=== PATIENT | female | born 1960 | race African-American/Black ===

== ENCOUNTER 2016-11-15 13:29 | Emergency (ER) | payer OTHER ==
[~2016-11-15] VITALS: Ht 167.6 cm; Wt 81.0 kg
[~2016-11-15 13:29] MED LIST: AMLO-511 PO; ASPI-825 PO; FURO20TA4 PO; ISOS60TA4 PO; METO50 PO; SPIR25 PO
[2016-11-15] MEDS ORDERED: HYDROCODONE/ACETAMINOPHEN 5-325 MG TABLET PO ONE (16:30)
[2016-11-15] MEDS ORDERED: SODIUM CHLORIDE 0.9% 1,000 ML IV ONE (16:30)
[2016-11-15] MEDS ORDERED: ACETAMINOPHEN 500 MG TABLET PO ONE (16:30)
[2016-11-15] MEDS ORDERED: LIDOCAINE HCL BUFFERED 1% W/EPI 1:100,000 20 ML VIAL INJ ONE (16:30)
[2016-11-15 17:05] LABS: BASOPHILS % (AUTO) 0.2 % (0.0-2.0); EOSINOPHILS % (AUTO) 0.1 % (1.0-6.0); HEMATOCRIT 41.1 % (36-46); HEMOGLOBIN 13.1 g/dL (12.0-16.0); LYMPHOCYTES # (AUTO) 1.3 K/uL (1.0-4.8); LYMPHOCYTES % (AUTO) 19.7 % (22.0-44.0); MEAN CORPUSCULAR HEMOGLOBIN 26.6 pg (26.0-34.0); MEAN CORPUSCULAR HGB CONC 31.8 G/dL (31.0-37.0); MEAN CORPUSCULAR VOLUME 84 fL (80-100); MONOCYTES # (AUTO) 0.7 K/uL (0.1-1.0); MONOCYTES % (AUTO) 10.6 % (2.0-9.0); NEUTROPHILS # (AUTO) 4.7 K/uL (1.8-7.7); NEUTROPHILS % (AUTO) 69.4 % (40.0-70.0); PLATELET COUNT (AUTO) 163 K/uL (150-450); RED BLOOD CELL COUNT(AUTO) 4.91 MIL/uL (4.00-5.20); RED CELL DISTRIBUTION WIDTH 15.2 % (11.5-14.5); WHITE BLOOD COUNT (AUTO) 6.8 K/uL (4.5-11.0)
[2016-11-15 17:15] LABS: CALCIUM, TOTAL 9.3 mg/dL (8.8-10.5); CREATININE 1.81 mg/dL (0.60-1.30); POTASSIUM 3.9 mmol/L (3.5-5.1)
[2016-11-15 17:25] LABS: ALBUMIN 3.2 g/dL (3.4-5.0); BILIRUBIN,TOTAL 0.5 mg/dL (0.1-1.0); TOTAL PROTEIN, SERUM 8.2 g/dL (6.4-8.2)
[2016-11-15 18:31] LABS: APPEARANCE,UNSPUN,BODY FLUID CLOUDY (CLEAR)
[2016-11-15 18:32] LABS: COLOR,BODY FLUID YELLOW (LT YELLOW)
[2016-11-15 18:40] LABS: ERYTHROCYTE SEDIMENTATION RATE 50 MM/HR (0-20)
[2016-11-15 18:46] LABS: OTHER CELLS,BODY FLUID 0
[2016-11-15 19:06] LABS: CRYSTALS, SYNOVIAL FLUID Mono Urates - Rare (None Seen)
[2016-11-15 22:21] VITALS: BP 143/81
== END 2016-11-15 23:16 | disposition home or self-care (01) ==
LOC: EMS 13:31
DX: M25.462 Effusion, left knee (principal); J45.909 Unspecified asthma, uncomplicated; I25.10 Atherosclerotic heart disease of native coronary artery without angina pectoris; E78.00 Pure hypercholesterolemia, unspecified; I11.0 Hypertensive heart disease with heart failure; I50.9 Heart failure, unspecified; I25.2 Old myocardial infarction; F17.210 Nicotine dependence, cigarettes, uncomplicated; K21.9 Gastro-esophageal reflux disease without esophagitis; Z79.82 Long term (current) use of aspirin; Z91.040 Latex allergy status; Z88.8 Allergy status to other drugs, medicaments and biological substances; Z91.018 Allergy to other foods
CPT/HCPCS: 20610; 36415; 73562; 80053; 85025; 85651; 87040; 87070; 87205; 89051; 89060; 96360; 96361; 99285; J3490; J7030

== ENCOUNTER 2016-11-29 17:55 | Inpatient (IN) | payer OTHER ==
[~2016-11-29] VITALS: Ht 167.6 cm; Wt 71.0 kg
[2016-11-29] MEDS ORDERED: ACETAMINOPHEN 325 MG TABLET PO ONE (22:00)
[2016-11-29] MEDS ORDERED: HYDROCODONE/ACETAMINOPHEN 5-325 MG TABLET PO ONE (22:00)
[2016-11-29] MEDS ORDERED: IBUPROFEN 800 MG TABLET PO ONE (22:00)
[2016-11-29] MEDS ORDERED: POVIDONE-IODINE 10% 120 ML SOLUTION TP ONE (22:30)
[2016-11-29 22:40] LABS: BASOPHILS % (AUTO) 0.2 % (0.0-2.0); EOSINOPHILS % (AUTO) 0.1 % (1.0-6.0); HEMATOCRIT 39.3 % (36-46); HEMOGLOBIN 12.4 g/dL (12.0-16.0); LYMPHOCYTES # (AUTO) 1.4 K/uL (1.0-4.8); LYMPHOCYTES % (AUTO) 14.3 % (22.0-44.0); MEAN CORPUSCULAR HEMOGLOBIN 26.5 pg (26.0-34.0); MEAN CORPUSCULAR HGB CONC 31.6 G/dL (31.0-37.0); MEAN CORPUSCULAR VOLUME 84 fL (80-100); MONOCYTES # (AUTO) 0.6 K/uL (0.1-1.0); MONOCYTES % (AUTO) 5.6 % (2.0-9.0); NEUTROPHILS # (AUTO) 7.9 K/uL (1.8-7.7); NEUTROPHILS % (AUTO) 79.8 % (40.0-70.0); PLATELET COUNT (AUTO) 188 K/uL (150-450); RED BLOOD CELL COUNT(AUTO) 4.69 MIL/uL (4.00-5.20); RED CELL DISTRIBUTION WIDTH 14.5 % (11.5-14.5); WHITE BLOOD COUNT (AUTO) 9.9 K/uL (4.5-11.0)
[2016-11-29 22:48] LABS: CALCIUM, TOTAL 9.6 mg/dL (8.8-10.5); CREATININE 2.15 mg/dL (0.60-1.30); POTASSIUM 3.9 mmol/L (3.5-5.1)
[2016-11-29 22:54] LABS: ALBUMIN 3.2 g/dL (3.4-5.0); BILIRUBIN,TOTAL 0.5 mg/dL (0.1-1.0); TOTAL PROTEIN, SERUM 8.5 g/dL (6.4-8.2)
[2016-11-29 23:41] LABS: APPEARANCE,UNSPUN,BODY FLUID TURBID (CLEAR); CRYSTALS, SYNOVIAL FLUID Mono Urates - Rare (None Seen)
[2016-11-29 23:42] LABS: COLOR,BODY FLUID YELLOW (LT YELLOW)
[2016-11-29 23:44] LABS: ERYTHROCYTE SEDIMENTATION RATE 95 MM/HR (0-20)
[2016-11-29 23:45] VITALS: BP 135/85
[2016-11-29] MEDS ORDERED: HYDROCODONE/ACETAMINOPHEN 5-325 MG TABLET PO PRN (23:45)
[2016-11-29] MEDS ORDERED: 0.9% SODIUM CHLORIDE 10 ML SYRINGE IVP PRN (23:45)
[2016-11-29] MEDS ORDERED: ZOLPIDEM TARTRATE 5 MG TABLET PO PRN (23:45)
[2016-11-30] MEDS: OxyCODONE HCL/ACETAMINOPHEN 5-325 MG TABLET PO PRN ×5 (00:35→20:56)
[2016-11-30] MEDS: HEPARIN SODIUM,PORCINE 5,000 UNITS/ML VIAL SQ SCH ×4 (03:12→23:21)
[2016-11-30] MEDS: MethylPREDNISolone SOD SUCC 40 MG/ML VIAL IVP SCH ×4 (03:12→23:20)
[2016-11-30 04:27] VITALS: BP 149/92
[2016-11-30] MEDS ORDERED: CefTRIAXone 1 GM/DEXTROSE 50 ML IV ONE (05:00)
[2016-11-30] MEDS ORDERED: CefTRIAXone SODIUM 2 GM in DEXTROSE 5%-WATER 50 ML IV ONE (05:30)
[2016-11-30] MEDS ORDERED: SODIUM CHLORIDE 0.9% 250 ML IV ONE (05:43)
[2016-11-30] MEDS ORDERED: VANCOMYCIN HCL 1.25 GM in DEXTROSE 5%-WATER 250 ML IV ONE (06:00)
[2016-11-30 07:17] VITALS: BP 125/77
[2016-11-30] MEDS: PANTOPRAZOLE SODIUM 40 MG DR TABLET PO SCH (08:05)
[2016-11-30] MEDS: ALLOPURINOL 100 MG TABLET PO SCH (08:05)
[2016-11-30 09:46] LABS: APPEARANCE,URINE CLOUDY (CLEAR); GLUCOSE, URINE (UA) NEGATIVE (NEGATIVE); KETONES,URINE NEGATIVE (NEGATIVE); LEUKOCYTE ESTERASE ,URINE NEGATIVE (NEGATIVE); OCCULT BLOOD,URINE SMALL (NEGATIVE); PH,URINE 5.5 (5.0-8.0); PROTEIN,URINE SEE CONFIRM (NEGATIVE)
[2016-11-30 10:02] LABS: ADD UA MICROSCOPIC YES
[2016-11-30 10:06] LABS: SULFOSALICYLIC ACID,URINE 4+ (Negative)
[2016-11-30 10:07] LABS: RBC,URINE 0-2 /HPF (0-2); SQUAMOUS EPITHELIAL CELL,UR Moderate /LPF (None Seen); WBC,URINE 0-2 /HPF (0-5)
[2016-11-30 11:10] VITALS: BP 126/78
[2016-11-30 15:16] VITALS: BP 134/81
[2016-11-30] MEDS: AmLODIPine BESYLATE 5 MG TABLET PO SCH (18:44)
[2016-11-30] MEDS: ISOSORBIDE MONONITRATE 60 MG ER TABLET PO SCH (18:44)
[2016-11-30] MEDS: ASPIRIN 81 MG CHEWABLE TABLET PO SCH (18:44)
[2016-11-30 19:33] VITALS: BP 123/76
[2016-11-30] MEDS: METOPROLOL TARTRATE 50 MG TABLET PO SCH (20:51)
[2016-11-30] MEDS: SPIRONOLACTONE 25 MG TABLET PO SCH (20:51)
[2016-11-30] MEDS ORDERED: COLCHICINE 0.6 MG TABLET PO ONE (23:00)
[2016-11-30 23:52] LABS: EOSINOPHILS % (AUTO) 0 % (1.0-6.0); HEMATOCRIT 36.9 % (36-46); HEMOGLOBIN 11.6 g/dL (12.0-16.0); LYMPHOCYTES # (AUTO) 0.6 K/uL (1.0-4.8); LYMPHOCYTES % (AUTO) 4.8 % (22.0-44.0); MEAN CORPUSCULAR HEMOGLOBIN 26.5 pg (26.0-34.0); MEAN CORPUSCULAR HGB CONC 31.4 G/dL (31.0-37.0); MEAN CORPUSCULAR VOLUME 84 fL (80-100); MONOCYTES # (AUTO) 0.3 K/uL (0.1-1.0); MONOCYTES % (AUTO) 2.4 % (2.0-9.0); NEUTROPHILS # (AUTO) 12.3 K/uL (1.8-7.7); PLATELET COUNT (AUTO) 192 K/uL (150-450); RED BLOOD CELL COUNT(AUTO) 4.38 MIL/uL (4.00-5.20); RED CELL DISTRIBUTION WIDTH 14.5 % (11.5-14.5); WHITE BLOOD COUNT (AUTO) 13.3 K/uL (4.5-11.0)
[2016-11-30 23:53] VITALS: BP 109/62
[2016-11-30 23:53] LABS: NEUTROPHILS % (AUTO) 92.8 % (40.0-70.0)
[2016-12-01 03:15] VITALS: BP 129/70
[2016-12-01 07:09] LABS: ALBUMIN 2.7 g/dL (3.4-5.0); BILIRUBIN,TOTAL 0.2 mg/dL (0.1-1.0); CALCIUM, TOTAL 9.9 mg/dL (8.8-10.5); CREATININE 2.59 mg/dL (0.60-1.30); POTASSIUM 4.2 mmol/L (3.5-5.1); TOTAL PROTEIN, SERUM 7.9 g/dL (6.4-8.2)
[2016-12-01 07:16] VITALS: BP 122/73
[2016-12-01] MEDS: HEPARIN SODIUM,PORCINE 5,000 UNITS/ML VIAL SQ SCH ×3 (08:03→23:31)
[2016-12-01] MEDS: MethylPREDNISolone SOD SUCC 40 MG/ML VIAL IVP SCH ×3 (08:03→23:31)
[2016-12-01] MEDS: VANCOMYCIN HCL 1 GM/D5% WATER 200 ML IV SCH (08:03)
[2016-12-01] MEDS: METOPROLOL TARTRATE 50 MG TABLET PO SCH ×2 (08:04→20:27)
[2016-12-01] MEDS: ASPIRIN 81 MG CHEWABLE TABLET PO SCH (08:04)
[2016-12-01] MEDS: COLCHICINE 0.6 MG TABLET PO SCH ×3 (08:04→20:27)
[2016-12-01] MEDS: OxyCODONE HCL/ACETAMINOPHEN 5-325 MG TABLET PO PRN ×2 (08:04→20:27)
[2016-12-01] MEDS: AmLODIPine BESYLATE 5 MG TABLET PO SCH (08:05)
[2016-12-01] MEDS: ISOSORBIDE MONONITRATE 60 MG ER TABLET PO SCH (08:05)
[2016-12-01] MEDS: SPIRONOLACTONE 25 MG TABLET PO SCH ×2 (08:05→20:27)
[2016-12-01] MEDS: ALLOPURINOL 100 MG TABLET PO SCH (08:05)
[2016-12-01] MEDS: PANTOPRAZOLE SODIUM 40 MG DR TABLET PO SCH (08:05)
[2016-12-01 11:02] VITALS: BP 119/68
[2016-12-01 15:12] VITALS: BP 122/72
[2016-12-01 19:48] VITALS: BP 136/80
[2016-12-01 23:49] VITALS: BP 133/90
[2016-12-02 05:49] VITALS: BP 128/76
[2016-12-02 07:04] LABS: ALBUMIN 2.5 g/dL (3.4-5.0); BILIRUBIN,TOTAL 0.1 mg/dL (0.1-1.0); CALCIUM, TOTAL 9.6 mg/dL (8.8-10.5); CREATININE 2.41 mg/dL (0.60-1.30); POTASSIUM 4.3 mmol/L (3.5-5.1); TOTAL PROTEIN, SERUM 7.6 g/dL (6.4-8.2)
[2016-12-02 07:59] VITALS: BP 136/88
[2016-12-02] MEDS: HEPARIN SODIUM,PORCINE 5,000 UNITS/ML VIAL SQ SCH ×3 (09:22→23:55)
[2016-12-02] MEDS: MethylPREDNISolone SOD SUCC 40 MG/ML VIAL IVP SCH ×3 (09:22→23:56)
[2016-12-02] MEDS: COLCHICINE 0.6 MG TABLET PO SCH ×3 (09:22→20:23)
[2016-12-02] MEDS: ALLOPURINOL 100 MG TABLET PO SCH (09:23)
[2016-12-02] MEDS: ASPIRIN 81 MG CHEWABLE TABLET PO SCH (09:23)
[2016-12-02] MEDS: SPIRONOLACTONE 25 MG TABLET PO SCH ×2 (09:23→20:23)
[2016-12-02] MEDS: PANTOPRAZOLE SODIUM 40 MG DR TABLET PO SCH (09:23)
[2016-12-02] MEDS: AmLODIPine BESYLATE 5 MG TABLET PO SCH (09:23)
[2016-12-02] MEDS: ISOSORBIDE MONONITRATE 60 MG ER TABLET PO SCH (09:23)
[2016-12-02] MEDS: METOPROLOL TARTRATE 50 MG TABLET PO SCH ×2 (09:23→20:23)
[2016-12-02] MEDS: VANCOMYCIN HCL 1 GM/D5% WATER 200 ML IV SCH (09:24)
[2016-12-02 11:34] VITALS: BP 119/62
[2016-12-02 11:37] LABS: BASOPHILS # (AUTO) 0.02 K/uL (0.00-0.20); BASOPHILS % (AUTO) 0.1 % (0.0-2.0); EOSINOPHILS % (AUTO) 0.02 % (1.0-6.0); HEMATOCRIT 35.8 % (36-46); HEMOGLOBIN 11.5 g/dL (12.0-16.0); LYMPHOCYTES # (AUTO) 0.6 K/uL (1.0-4.8); LYMPHOCYTES % (AUTO) 3.9 % (22.0-44.0); MEAN CORPUSCULAR HEMOGLOBIN 27.4 pg (26.0-34.0); MEAN CORPUSCULAR VOLUME 86 fL (80-100); MONOCYTES # (AUTO) 0.2 K/uL (0.1-1.0); MONOCYTES % (AUTO) 1.4 % (2.0-9.0); NEUTROPHILS # (AUTO) 14.9 K/uL (1.8-7.7); PLATELET COUNT (AUTO) 220 K/uL (150-450); RED BLOOD CELL COUNT(AUTO) 4.18 MIL/uL (4.00-5.20); RED CELL DISTRIBUTION WIDTH 14.6 % (11.5-14.5); WHITE BLOOD COUNT (AUTO) 15.8 K/uL (4.5-11.0)
[2016-12-02 11:38] LABS: NEUTROPHILS % (AUTO) 94.6 % (40.0-70.0)
[2016-12-02] MEDS: PIPERACILLIN/TAZO 3.375 GM/D5W 50 ML IV SCH ×3 (12:17→23:56)
[2016-12-02 15:02] VITALS: BP 145/74
[2016-12-02 19:34] VITALS: BP 129/78
[2016-12-02] MEDS: OxyCODONE HCL/ACETAMINOPHEN 5-325 MG TABLET PO PRN (19:36)
[2016-12-02 23:13] VITALS: BP 138/76
[2016-12-03 04:27] VITALS: BP 147/75
[2016-12-03] MEDS: PIPERACILLIN/TAZO 3.375 GM/D5W 50 ML IV SCH ×2 (05:48→11:25)
[2016-12-03 06:28] LABS: BASOPHILS % (AUTO) 0.1 % (0.0-2.0); EOSINOPHILS % (AUTO) 0.2 % (1.0-6.0); HEMATOCRIT 38.9 % (36-46); HEMOGLOBIN 12.2 g/dL (12.0-16.0); LYMPHOCYTES # (AUTO) 0.8 K/uL (1.0-4.8); LYMPHOCYTES % (AUTO) 7.7 % (22.0-44.0); MEAN CORPUSCULAR HEMOGLOBIN 26.9 pg (26.0-34.0); MEAN CORPUSCULAR HGB CONC 31.5 G/dL (31.0-37.0); MEAN CORPUSCULAR VOLUME 85 fL (80-100); MONOCYTES # (AUTO) 0.1 K/uL (0.1-1.0); MONOCYTES % (AUTO) 0.9 % (2.0-9.0); NEUTROPHILS # (AUTO) 9.6 K/uL (1.8-7.7); PLATELET COUNT (AUTO) 242 K/uL (150-450); RED BLOOD CELL COUNT(AUTO) 4.55 MIL/uL (4.00-5.20); RED CELL DISTRIBUTION WIDTH 14.6 % (11.5-14.5); WHITE BLOOD COUNT (AUTO) 10.5 K/uL (4.5-11.0)
[2016-12-03 06:43] LABS: NEUTROPHILS % (AUTO) 91.1 % (40.0-70.0)
[2016-12-03 06:57] LABS: ALBUMIN 2.7 g/dL (3.4-5.0); BILIRUBIN,TOTAL 0.2 mg/dL (0.1-1.0); CALCIUM, TOTAL 9.8 mg/dL (8.8-10.5); CREATININE 2.33 mg/dL (0.60-1.30); POTASSIUM 4.6 mmol/L (3.5-5.1)
[2016-12-03 07:30] VITALS: BP 143/80
[2016-12-03] MEDS: VANCOMYCIN HCL 1 GM/D5% WATER 200 ML IV SCH (08:13)
[2016-12-03] MEDS: SPIRONOLACTONE 25 MG TABLET PO SCH (08:52)
[2016-12-03] MEDS: HEPARIN SODIUM,PORCINE 5,000 UNITS/ML VIAL SQ SCH (08:52)
[2016-12-03] MEDS: MethylPREDNISolone SOD SUCC 40 MG/ML VIAL IVP SCH (08:52)
[2016-12-03] MEDS: ALLOPURINOL 100 MG TABLET PO SCH (08:53)
[2016-12-03] MEDS: ASPIRIN 81 MG CHEWABLE TABLET PO SCH (08:53)
[2016-12-03] MEDS: COLCHICINE 0.6 MG TABLET PO SCH (08:53)
[2016-12-03] MEDS: AmLODIPine BESYLATE 5 MG TABLET PO SCH (08:53)
[2016-12-03] MEDS: ISOSORBIDE MONONITRATE 60 MG ER TABLET PO SCH (08:53)
[2016-12-03] MEDS: PANTOPRAZOLE SODIUM 40 MG DR TABLET PO SCH (08:53)
[2016-12-03] MEDS: METOPROLOL TARTRATE 50 MG TABLET PO SCH (08:54)
[2016-12-03] MEDS: OxyCODONE HCL/ACETAMINOPHEN 5-325 MG TABLET PO PRN (09:14)
[2016-12-03 11:01] VITALS: BP 125/70
[2016-12-03] MEDS ORDERED: CIPR-278 PO (11:31)
[2016-12-03] MEDS ORDERED: ALLUPURINOL PO (11:31)
[2016-12-03] MEDS ORDERED: prednisone PO (11:31)
[2016-12-03] MEDS ORDERED: [UNRECOGNIZED DRUG - OTHER] PO (11:31)
[2016-12-03] MEDS ORDERED: clindamycin PO (11:31)
[2016-12-03] MEDS ORDERED: PERCOCET PO (11:31)
== END 2016-12-03 14:50 | disposition home or self-care (01) | DRG 351 ==
LOC: EMS 17:58 → OBSVTOIN 23:00 → 6N 23:00 → INTOOBSV 23:00 → 6N 11-30 04:53
PROVIDERS: ADMIT Internal Medicine; ATTEND Internal Medicine
PROC: 0S9D3ZX Drainage of Left Knee Joint, Percutaneous Approach, Diagnostic (ICD-10-PCS; principal; 2016-11-29)
DX: M10.062 Idiopathic gout, left knee (principal); I13.0 Hypertensive heart and chronic kidney disease with heart failure and stage 1 through stage 4 chronic kidney disease, or unspecified chronic kidney disease; M00.9 Pyogenic arthritis, unspecified; I50.9 Heart failure, unspecified; E87.1 Hypo-osmolality and hyponatremia; M10.9 Gout, unspecified; N18.9 Chronic kidney disease, unspecified; K21.9 Gastro-esophageal reflux disease without esophagitis; J45.909 Unspecified asthma, uncomplicated; I25.10 Atherosclerotic heart disease of native coronary artery without angina pectoris; E78.00 Pure hypercholesterolemia, unspecified; F17.210 Nicotine dependence, cigarettes, uncomplicated; E78.5 Hyperlipidemia, unspecified; I73.00 Raynaud's syndrome without gangrene; Z90.710 Acquired absence of both cervix and uterus; Z87.01 Personal history of pneumonia (recurrent); I25.2 Old myocardial infarction; Z79.899 Other long term (current) drug therapy; Z79.82 Long term (current) use of aspirin; Z91.09 Other allergy status, other than to drugs and biological substances; Z88.8 Allergy status to other drugs, medicaments and biological substances; Z91.040 Latex allergy status; Z82.49 Family history of ischemic heart disease and other diseases of the circulatory system
CPT/HCPCS: 83605; 84145; 84550; 85651; 87040; 87070; 87081; 87205; 89051; 89060; 97110; 97116; 97161; 97530; 99285; J0696; J1644; J2543; J2920; J3370; J7050; J7060

== ENCOUNTER 2019-06-17 12:11 | Emergency (ER) | payer MEDICARE, OTHER ==
[~2019-06-17] VITALS: Ht 167.6 cm; Wt 71.8 kg
[~2019-06-17 12:11] MED LIST changes: +ALLO100T PO; -AMLO-511 PO; +AMLO5TAB9 PO; +ATOR10TA84 PO; +PRED1 PO
[2019-06-17] MEDS ORDERED: ASPI81 PO (13:10)
[2019-06-17] MEDS ORDERED: ALBUTEROL SULFATE HFA 90 MCG/PUFF 8 GM INHALER IH ONE (13:15)
[2019-06-17 13:38] LABS: URIC ACID 8.8 mg/dL (2.6-7.2)
[2019-06-17 14:35] LABS: BASOPHILS % (AUTO) 0.5 % (0.0-2.0); EOSINOPHILS % (AUTO) 0.2 % (1.0-6.0); HEMATOCRIT 35.2 % (36-46); HEMOGLOBIN 11.8 g/dL (12.0-16.0); LYMPHOCYTES # (AUTO) 0.9 K/uL (1.0-4.8); LYMPHOCYTES % (AUTO) 20.4 % (22.0-44.0); MEAN CORPUSCULAR HEMOGLOBIN 27.1 pg (26.0-34.0); MEAN CORPUSCULAR HGB CONC 33.5 G/dL (31.0-37.0); MEAN CORPUSCULAR VOLUME 81 fL (80-100); MONOCYTES # (AUTO) 0.4 K/uL (0.1-1.0); MONOCYTES % (AUTO) 9.4 % (2.0-9.0); NEUTROPHILS % (AUTO) 69.5 % (40.0-70.0); PLATELET COUNT (AUTO) 204 K/uL (150-450); RED BLOOD CELL COUNT(AUTO) 4.35 MIL/uL (4.00-5.20); RED CELL DISTRIBUTION WIDTH 14.3 % (11.5-14.5)
[2019-06-17 14:40] LABS: CALCIUM, TOTAL 8.6 mg/dL (8.8-10.5); POTASSIUM 3.3 mmol/L (3.5-5.1)
[2019-06-17 14:46] LABS: ALBUMIN 2.4 g/dL (3.4-5.0); BILIRUBIN,TOTAL 0.4 mg/dL (0.1-1.0); TOTAL PROTEIN, SERUM 7.3 g/dL (6.4-8.2)
[2019-06-17] MEDS ORDERED: HYDROCODONE/ACETAMINOPHEN 5-325 MG TABLET PO ONE (15:45)
[2019-06-17 16:55] VITALS: BP 135/78
== END 2019-06-17 17:07 | disposition home or self-care (01) ==
LOC: EMS 12:15
DX: M70.21 Olecranon bursitis, right elbow (principal); N63.32 Unspecified lump in axillary tail of the left breast; N63.31 Unspecified lump in axillary tail of the right breast; R91.8 Other nonspecific abnormal finding of lung field; I11.0 Hypertensive heart disease with heart failure; I50.9 Heart failure, unspecified; J45.909 Unspecified asthma, uncomplicated; I25.10 Atherosclerotic heart disease of native coronary artery without angina pectoris; E78.00 Pure hypercholesterolemia, unspecified; I25.2 Old myocardial infarction; F17.210 Nicotine dependence, cigarettes, uncomplicated; Z90.710 Acquired absence of both cervix and uterus; Z91.040 Latex allergy status; Z88.8 Allergy status to other drugs, medicaments and biological substances; Z91.018 Allergy to other foods; Z79.82 Long term (current) use of aspirin
CPT/HCPCS: 71250; 84550; 94640; J3535

== ENCOUNTER 2019-07-02 16:10 | Emergency (ER) | payer MEDICARE, OTHER ==
[~2019-07-02] VITALS: Ht 167.6 cm; Wt 73.6 kg
[~2019-07-02 16:10] MED LIST changes: -ASPI-825 PO; +ASPI81 PO; -PRED1 PO; -SPIR25 PO
[2019-07-02 16:34] VITALS: BP 128/73
== END 2019-07-02 18:15 | disposition left against medical advice (07) ==
LOC: EMS 16:14
DX: M79.604 Pain in right leg (principal); M79.605 Pain in left leg; Z53.21 Procedure and treatment not carried out due to patient leaving prior to being seen by health care provider